=== PATIENT | male | born 1975 ===

== ENCOUNTER 2021-11-14 05:45 | Day surgery (SDC) | payer OTHER ==
[~2021-11-14] VITALS: Ht 182.9 cm; Wt 108.9 kg
[~2021-11-14 05:45] MED LIST: METFORMIN HCL1000 M2 PO
[2021-11-14] MEDS ORDERED: COLACE100 MG PO (10:48)
[2021-11-14] MEDS ORDERED: NEURONTIN300 MG PO (10:48)
[2021-11-14] MEDS ORDERED: PERCOCET 5-3251 EACH PO (10:48)
== END 2021-11-14 13:00 | disposition home or self-care (01) ==
LOC: CIR.AMB 05:45
PROVIDERS: ATTEND Surgery
DX: K64.8 Other hemorrhoids (principal); Z20.822 Contact with and (suspected) exposure to COVID-19; E11.9 Type 2 diabetes mellitus without complications